=== PATIENT | male | born 1965 | race Caucasian/White ===

== ENCOUNTER 2023-10-03 20:12 | Emergency (ER) | payer OTHER ==
[~2023-10-03] VITALS: Ht 175.3 cm; Wt 99.8 kg
[2023-10-03 20:25] VITALS: BP 166/88; PULSE 90; RESP 16; TEMP 97; O2SAT 98
[2023-10-03] MEDS ORDERED: methocarbamoL 500 MG TAB PO STA (20:47)
[2023-10-03] MEDS ORDERED: ACETAMINOPHEN EXTRA STRENGTH 500 MG TAB PO ONE (20:50)
[2023-10-03] MEDS ORDERED: KETOROLAC 30 MG/ML VIAL IM ONE (20:50)
[2023-10-03] MEDS ORDERED: predniSONE 20 MG TAB PO ONE (20:50)
[2023-10-03] MEDS ORDERED: NAPR-54 PO (21:56)
[2023-10-03] MEDS ORDERED: METH-1681 PO (21:56)
[2023-10-03] MEDS ORDERED: PRED20TA5 PO (21:56)
== END 2023-10-03 22:05 | disposition home or self-care (01) ==
LOC: MED 20:12
DX: M79.651 Pain in right thigh (principal)
CPT/HCPCS: 96372; 99284; J1885; J7512